=== PATIENT | male | born 2000 | race Caucasian/White ===

== ENCOUNTER 2021-01-18 00:52 | Emergency (ER) | payer BC ==
[~2021-01-18] VITALS: Ht 193 cm; Wt 88.6 kg
[2021-01-18 00:56] VITALS: TEMP 98
[2021-01-18 01:37] LABS: BASO % 0.4 % (0.0-2.0); EOS # 0.1 (0.0-0.7); EOS % 1.3 % (0-4.0); GRAN # 4.6 (1.4-6.5); GRAN % 54.5 % (42.2-75.2); HEMATOCRIT 37.9 % (36.0-47.0); HEMOGLOBIN 13.4 g/dl (12.5-16.1); LYMPH # 2.9 (1.2-3.4); LYMPH % 34.8 % (20.0-51.0); MEAN CELL VOLUME 89 fl (80.0-95.0); MEAN CORPUSCULAR HEMOGLOBIN 31 pg (26.0-32.0); MEAN CORPUSCULAR HGB CONC 35 g/dl (33.0-37.0); MONO # 0.7 (0.1-0.6); MONO % 8.8 % (1.7-9.3); PLATELET COUNT 198 K/mm3 (130-400); RED BLOOD COUNT 4.28 M/mm3 (4.20-5.60); REDCELL DISTRIBUTION WIDTH-CV 11.9 % (11.5-14.5)
[2021-01-18 02:01] LABS: ALANINE AMINOTRANSFERASE 23 U/L (4-49); ALBUMIN 4.6 gm/dL (3.5-5.0); ALKALINE PHOSPHATASE 46 U/L (50-136); ANION GAP 13 mmol/L (7-16); AST,SGOT 33 U/L (15-37); BILIRUBIN,TOTAL 0.8 mg/dL (0.0-1.0); BLOOD UREA NITROGEN 17 mg/dL (9-20); CALCIUM 9.4 mg/dL (8.4-10.2); CARBON DIOXIDE 24 mmol/L (22-30); CHLORIDE 105 mmol/L (98-107); CREATININE, serum 1.04 (0.66-1.25); GLUCOSE 101 mg/dL (74-106); POTASSIUM 3.6 mmol/L (3.4-5.0); SODIUM 142 mmol/L (137-145); TOTAL PROTEIN 7.5 gm/dL (6.4-8.2)
[2021-01-18 02:06] LABS: C-REACTIVE PROTEIN < 0.5 mg/dL (0.0-0.9)
[2021-01-18 02:10] LABS: TROPONIN-I < 0.012 ng/mL (0.000-0.035)
[2021-01-18 02:22] VITALS: BP 118/72; PULSE 79
== END 2021-01-18 02:22 | disposition home or self-care (01) ==
LOC: COL.ER 00:52
PROVIDERS: Nurse Practitioner Primary Care
DX: R07.89 Other chest pain (principal)
CPT/HCPCS: J1885